=== PATIENT | female | born 1970 | race American Indian/Alaskan Native ===

== ENCOUNTER 2017-03-16 19:28 | Emergency (ER) | payer BC, OTHER ==
--- NOTE | 2017-03-16 20:17 | Emergency Department Report ---
HPI - General Chief Complaint: Syncope Time Seen by Provider: 03/16/17 20:06 - HPI HPI: This is a 46-year-old Afro-[place] female presents to the emergency department from up in the ICU where she was sitting bedside with her aunt. After getting news of her aunts , the patient passed out in her chair and slumped backwards. She did not fall down or hit her head. The patient has a history of diabetes and family became concerned that she was low blood sugar so they put some Coca-Cola into her mouth. Patient was only unconscious for a short amount of time. Patient currently is asymptomatic other than feeling sad about her family members . She has a past medical history of non-insulin dependent diabetes. She denies any history of DE, CVA, PE/DVT. ED Past Medical Hx - Past Medical History Previous Medical History?: Yes Hx Diabetes: Yes - Surgical History Past Surgical History?: Yes Additional Surgical History: Tubal Ligation, Left knee surgery - Social History Smoking Status: Current Every Day Smoker Substance Use Type: None - Medications Home Medications: Home Medications Medication Instructions Recorded Confirmed Last Taken Type metFORMIN [Glucophage] 500 mg PO BID #30 tablet 05/22/14 10/13/15 10/13/15 Rx HYDROcodone/APAP 10-325 [[place] 1 each PO Q4-6H PRN #25 tablet 10/10/15 10/13/15 Unknown Rx 10/325] Sulfamethoxazole/Trimethoprim 1 each PO Q12H #20 tablet 10/10/15 10/13/15 Rx [Bactrim DS TAB] glipiZIDE 5 mg PO BID 10/10/15 10/13/15 10/13/15 History Ibuprofen [Motrin 800 MG tab] 800 mg PO Q8HR PRN #30 tablet 10/13/15 Unknown Rx Cyclobenzaprine [Flexeril] 10 mg PO TID PRN #15 tablet 05/27/16 Unknown Rx Ibuprofen [Motrin] 800 mg PO Q8HR PRN #15 tablet 05/27/16 Unknown Rx ED Review of Systems ROS: Stated complaint: POSS LOW BLOOD SUGAR Other details as noted in HPI Comment: All other systems reviewed and negative Constitutional: denies: chills, fever Eyes: denies: eye pain, eye discharge, vision change ENT: denies: ear pain, throat pain Respiratory: denies: cough, shortness of breath, wheezing Cardiovascular: syncope. denies: chest pain, palpitations Gastrointestinal: denies: abdominal pain, nausea, diarrhea Genitourinary: denies: urgency, dysuria, discharge Musculoskeletal: denies: back pain, joint swelling, arthralgia Skin: denies: rash, lesions Neurological: denies: headache, weakness, paresthesias Physical Exam - Physical Exam Vital Signs: Vital Signs 03/16/17 19:44 Temperature 98.7 F Pulse Rate 102 H Respiratory 18 Rate Blood Pressure 164/111 O2 Sat by Pulse 100 Oximetry Physical Exam: GENERAL: The patient is well-developed well-nourished. HEENT: Normocephalic. Atraumatic. Extraocular motions are intact. Patient has moist mucous membranes. Pupils equal reactive to light bilaterally. No nystagmus. NECK: Supple. Trachea is midline. CHEST/LUNGS: Clear to auscultation. There is no respiratory distress noted. HEART/CARDIOVASCULAR: Regular. There is no tachycardia. There is no gallop rub or murmur. ABDOMEN: Abdomen is soft, nontender. Patient has normal bowel sounds. There is no abdominal distention. SKIN: Skin is warm and dry. NEURO: The patient is awake, alert, and oriented. The patient is cooperative. The patient has no focal neurologic deficits. The patient has normal speech. Cranial nerves II through XII grossly intact. No dysmetria. No pronator drift. MUSCULOSKELETAL: There is no tenderness or deformity. There is no limitation range of motion. There is no evidence of acute injury. ED Course Vital Signs 03/16/17 19:44 Temperature 98.7 F Pulse Rate 102 H Respiratory 18 Rate Blood Pressure 164/111 O2 Sat by Pulse 100 Oximetry ED Medical Decision Making - Lab Data Result diagrams: 03/16/17 20:20 03/16/17 20:20 - EKG Data -: EKG Interpreted by Ms EKG shows normal: sinus rhythm, axis, intervals, QRS complexes, ST-T waves Rate: normal - EKG Data When compared to previous EKG there are: previous EKG unavailable Interpretation: normal EKG - Medical Decision Making Is a 46-year-old female who presents emergency Department after passing out while in a chair after hearing of her aunts expiration in the ICU. The patient has been awake and alert and appropriate since being in the emergency department. No focal, motor or sensory deficits in her cranial nerves are intact. Labs show some hyperglycemia but she does not appear to be in diabetic ketoacidosis or HHNK. She was given 6 units of subcutaneous insulin. Normal thyroid function. Vital signs stable throughout her ED course. Patient ambulatory in the emergency department and appears stable. Appears most consistent with a vasovagal episode secondary to grief. The patient go home and do an Accu-Chek before restarting her diabetes medications. She will follow -up with her primary care doctor and return with the ER with any worsening or symptoms or acute distress. - Differential Diagnosis vasovagal, orthostatic hypotension, hypoglycemia Critical Care Time: No Critical care attestation.: If time is entered above; I have spent that time in minutes in the direct care of this critically ill patient, excluding procedure time. ED Disposition Clinical Impression: Grieving Syncope Qualifiers: Syncope type: unspecified Qualified Code(s): R55 - Syncope and collapse Disposition: DC-01 TO HOME OR SELFCARE Is pt being admited?: No Condition: Stable Additional Instructions: Please follow-up with your primary care doctor as soon as possible. Please return to the emergency department immediately with any further passing out, any intractable headache, chest pain, shortness of breath or any acute distress. Referrals: PRIMARY CARE, [Primary Care Provider] - [facility] Time of Disposition: 21:40
[2017-03-16 20:43] LABS: Basophils % (Auto) 0.5 % (0.0-1.8); Eosinophils % (Auto) 2.6 % (0.0-4.3); Hematocrit 48.9 % (30.3-42.9); Hemoglobin 16.1 gm/dl (10.1-14.3); Mean Corpuscular HGB Conc 33 % (30-34); Mean Corpuscular Hemoglobin 30 pg (28-32); Mean Corpuscular Volume 90 fl (79-97); Red Blood Count 5.41 M/mm3 (3.65-5.03); Red Cell Distribution Width 16.7 % (13.2-15.2); White Blood Count 7.1 K/mm3 (4.5-11.0)
[2017-03-16 20:44] LABS: Platelet Count 221 K/mm3 (140-440)
[2017-03-16 20:53] LABS: Anion Gap 17 mmol/L; BUN/Creatinine Ratio 18.33; Blood Urea Nitrogen 11 mg/dL (7-17); Carbon Dioxide 28 mmol/L (22-30); Chloride 97.5 mmol/L (98-107); Glucose 312 mg/dL (65-100); Potassium 4.5 mmol/L (3.6-5.0); Sodium 138 mmol/L (137-145)
[2017-03-16 21:06] LABS: Bilirubin,Urine NEG (Negative); Blood,Urine LG (Negative); Ketones,Urine 20 mg/dL (Negative); Leukocyte Esterase,Urine NEG (Negative); Mucus,Urine FEW /HPF; Nitrite,Urine NEG (Negative); Urobilinogen,Urine < 2.0 mg/dL (<2.0); WBC,Urine < 1.0 /HPF (0.0-6.0)
[2017-03-16 22:14] VITALS: BP 132/88
== END 2017-03-16 22:17 | disposition home or self-care (01) ==
LOC: ED 19:28
DX: R55 Syncope and collapse (principal); F43.20 Adjustment disorder, unspecified; E11.9 Type 2 diabetes mellitus without complications; F17.200 Nicotine dependence, unspecified, uncomplicated
CPT/HCPCS: 36415; 80048; 81001; 82962; 84443; 85025; 93005; 93010; 96372; J1815

== ENCOUNTER 2018-01-02 12:25 | Emergency (ER) | payer BC ==
--- NOTE | 2018-01-02 13:04 | XRay Report ---
ROUTINE CHEST, TWO VIEWS: HISTORY: Shortness of breath. The trachea, heart, mediastinal contour, lung joseph and bony thorax are unremarkable. IMPRESSION: Unremarkable chest x-ray.
[2018-01-02] MEDS ORDERED: NACL 0.9% 1000 ML IV ONE (13:51)
[2018-01-02 14:05] LABS: Basophils # (Auto) 0.1 K/mm3 (0.0-0.1); Basophils % (Auto) 0.6 % (0.0-1.8); Eosinophils # (Auto) 0.2 K/mm3 (0.0-0.4); Eosinophils % (Auto) 1.6 % (0.0-4.3); Hematocrit 51.7 % (30.3-42.9); Hemoglobin 17.3 gm/dl (10.1-14.3); Lymphocytes # (Auto) 1.8 K/mm3 (1.2-5.4); Mean Corpuscular HGB Conc 34 % (30-34); Mean Corpuscular Hemoglobin 33 pg (28-32); Mean Corpuscular Volume 98 fl (79-97); Monocytes # (Auto) 0.7 K/mm3 (0.0-0.8); Monocytes % (Auto) 6.1 % (0.0-7.3); Platelet Count 238 K/mm3 (140-440); Red Blood Count 5.27 M/mm3 (3.65-5.03); Red Cell Distribution Width 13.2 % (13.2-15.2)
[2018-01-02] MEDS ORDERED: LEVAQUIN 750MG/150ML 750 MG/150 ML BAG IV ONE (14:07)
[2018-01-02 14:17] LABS: INR 0.87 (0.87-1.13)
[2018-01-02 14:26] LABS: BUN/Creatinine Ratio 26; Blood Urea Nitrogen 13 mg/dL (7-17); Calcium 8.8 mg/dL (8.4-10.2); Hemolysis Index 14
[2018-01-02] MEDS ORDERED: TYLENOL #3 PO ONE (15:35)
[2018-01-02] MEDS ORDERED: DUONEB *Not for PRN Use IH ONE (16:28)
[2018-01-02 18:07] VITALS: BP 135/83
--- NOTE | 2018-01-02 18:15 | Cat Scan Report ---
FINAL REPORT EXAM: CT ANGIO CHEST HISTORY: chest pain,sob TECHNIQUE: Enhanced CT of the chest at 2.5 mm axial intervals following a pulmonary embolism protocol. Coronal and sagittal imaging were also obtained. Coronal oblique MIP projections were obtained. Contrast: 100 ml of Omnipaque 350 given IV. PRIORS: None. FINDINGS: There is no evidence for pulmonary embolism in the main pulmonary artery, right and left pulmonary arteries or their major distributions. However, CT does not exclude distal pulmonary emboli. Otherwise, the lung parenchyma are expanded and clear with no evidence for parenchymal nodules, infiltrates, congestion, or pleural effusion. There is no evidence for mediastinal, hilar, or axillary adenopathy. Cardiovascular structures are within normal limits. No evidence for ventricular chamber enlargement is seen. Images through the lung bases include the upper abdomen which show no abnormalities of the visualized abdominal viscera. Bony structures demonstrate no focal abnormalities. IMPRESSION: No evidence for pulmonary embolism. Negative CT of the chest.
--- NOTE | 2018-01-02 18:43 | Emergency Department Report ---
HPI - General Chief Complaint: Dyspnea/Respdistress Time Seen by Provider: 01/02/18 13:46 ED Past Medical Hx - Past Medical History Previous Medical History?: Yes Hx Diabetes: Yes - Surgical History Past Surgical History?: No Additional Surgical History: Tubal Ligation, Left knee surgery - Social History Smoking Status: Current Every Day Smoker - Medications Home Medications: Home Medications Medication Instructions Recorded Confirmed Last Taken Type metFORMIN [Glucophage] 500 mg PO BID #30 tablet 05/22/14 10/13/15 10/13/15 Rx HYDROcodone/APAP 10-325 [[place] 1 each PO Q4-6H PRN #25 tablet 10/10/15 10/13/15 Unknown Rx 10/325] Sulfamethoxazole/Trimethoprim 1 each PO Q12H #20 tablet 10/10/15 10/13/15 Rx [Bactrim DS TAB] glipiZIDE 5 mg PO BID 10/10/15 10/13/15 10/13/15 History Ibuprofen [Motrin 800 MG tab] 800 mg PO Q8HR PRN #30 tablet 10/13/15 Unknown Rx Cyclobenzaprine [Flexeril] 10 mg PO TID PRN #15 tablet 05/27/16 Unknown Rx Ibuprofen [Motrin] 800 mg PO Q8HR PRN #15 tablet 05/27/16 Unknown Rx Amoxicillin/Potassium Clav 1 each PO BID #20 tablet 01/02/18 Unknown Rx [Augmentin 875-125 Tablet] methylPREDNISolone [Medrol Dose 4 mg PO QAM #1 pack 01/02/18 Unknown Rx Mitch] ED Review of Systems ROS: Stated complaint: CP/WHEEZING Other details as noted in HPI Physical Exam - Physical Exam Vital Signs: Vital Signs 01/02/18 01/02/18 01/02/18 12:27 13:42 13:45 Temperature 99 F Pulse Rate 123 H 114 H 121 H Respiratory 14 15 Rate Blood Pressure 140/78 O2 Sat by Pulse 95 97 96 Oximetry 01/02/18 01/02/18 01/02/18 14:00 14:20 14:30 Temperature Pulse Rate 112 H 107 H Respiratory 15 19 24 Rate Blood Pressure 168/96 137/82 137/82 O2 Sat by Pulse 96 95 95 Oximetry 01/02/18 01/02/18 01/02/18 15:00 15:30 16:00 Temperature Pulse Rate 113 H 100 H Respiratory 19 18 15 Rate Blood Pressure 143/82 143/82 155/79 O2 Sat by Pulse 95 98 96 Oximetry 01/02/18 01/02/18 01/02/18 16:30 17:42 18:00 Temperature Pulse Rate 97 H 109 H 103 H Respiratory 26 H 14 20 Rate Blood Pressure 155/79 155/79 135/83 O2 Sat by Pulse 95 93 Oximetry 01/02/18 18:07 Temperature 98.4 F Pulse Rate Respiratory Rate Blood Pressure O2 Sat by Pulse Oximetry Physical Exam: - Physical Exam Physical Exam: - General Limitations: No Limitations General appearance: alert, in no apparent distress, obese - Head Head exam: Present: atraumatic, normocephalic - Eye Eye exam: Present: normal appearance - ENT ENT exam: Present: mucous membranes moist - Neck Neck exam: Present: normal inspection - Respiratory Respiratory exam: Present: normal lung sounds bilaterally. Absent: respiratory distress - Cardiovascular Cardiovascular Exam: Present: normal rhythm, tachycardia. Absent: systolic murmur, diastolic murmur, rubs, gallop - GI/Abdominal GI/Abdominal exam: Present: soft, normal bowel sounds - Extremities Exam Extremities exam: Present: normal inspection - Back Exam Back exam: Present: normal inspection - Neurological Exam Neurological exam: Present: alert, oriented X3 - Psychiatric Psychiatric exam: normal affect and mood - Skin Skin exam: Present: warm, dry, intact, normal color. Absent: rash ED Course Vital Signs 01/02/18 01/02/18 01/02/18 12:27 13:42 13:45 Temperature 99 F Pulse Rate 123 H 114 H 121 H Respiratory 14 15 Rate Blood Pressure 140/78 O2 Sat by Pulse 95 97 96 Oximetry 01/02/18 01/02/18 01/02/18 14:00 14:20 14:30 Temperature Pulse Rate 112 H 107 H Respiratory 15 19 24 Rate Blood Pressure 168/96 137/82 137/82 O2 Sat by Pulse 96 95 95 Oximetry 01/02/18 01/02/18 01/02/18 15:00 15:30 16:00 Temperature Pulse Rate 113 H 100 H Respiratory 19 18 15 Rate Blood Pressure 143/82 143/82 155/79 O2 Sat by Pulse 95 98 96 Oximetry 01/02/18 01/02/18 01/02/18 16:30 17:42 18:00 Temperature Pulse Rate 97 H 109 H 103 H Respiratory 26 H 14 20 Rate Blood Pressure 155/79 155/79 135/83 O2 Sat by Pulse 95 93 Oximetry 01/02/18 18:07 Temperature 98.4 F Pulse Rate Respiratory Rate Blood Pressure O2 Sat by Pulse Oximetry ED Medical Decision Making - Lab Data Result diagrams: 01/02/18 13:47 01/02/18 13:47 Critical care attestation.: If time is entered above; I have spent that time in minutes in the direct care of this critically ill patient, excluding procedure time. ED Disposition Clinical Impression: Acute sinusitis Qualifiers: Sinusitis location: maxillary Recurrence: non-recurrent Qualified Code(s): J01.00 - Acute maxillary sinusitis, unspecified Disposition: - TO HOME OR SELFCARE Is pt being admited?: No Does the pt Need Aspirin: No Condition: Stable Instructions: Acute Bacterial Rhinosinusitis (ED) Prescriptions: Amoxicillin/Potassium Clav [Augmentin 875-125 Tablet] 1 each PO BID #20 tablet methylPREDNISolone [Medrol Dose Mitch] 4 mg PO QAM #1 pack Referrals: PRIMARY CARE, [Primary Care Provider] - 3-5 Days
== END 2018-01-02 19:00 | disposition home or self-care (01) ==
LOC: ED 12:25
DX: J01.90 Acute sinusitis, unspecified (principal); F17.200 Nicotine dependence, unspecified, uncomplicated; E11.9 Type 2 diabetes mellitus without complications
CPT/HCPCS: 36415; 71046; 71275; 80048; 82140; 85025; 85610; 87040; 96365; 96366; 99285; J1956; J7030; Q9967

== ENCOUNTER 2019-07-28 08:41 | Emergency (ER) | payer BC ==
[2019-07-28 08:48] VITALS: BP 142/87
--- NOTE | 2019-07-28 09:37 | Emergency Department Report ---
ED General Adult HPI - General Chief complaint: Hyperglycemia Stated complaint: HBS/RT EYE SWELLING Time Seen by Provider: 07/28/19 09:04 Source: patient Mode of arrival: Ambulatory Limitations: No Limitations - History of Present Illness Initial comments: This is a 48-year-old female with a history of diabetes hyperlipidemia who presents to ED complaining of right upper eyelid redness and pain for the past 3 days. Patient denies any trauma or injuries to the eye she denies any vision loss or blurry vision. Patient is also stated in the she had a recent change of insurance and can no longer see her primary care of 68 as she is in transition trying to find a primary care doctor. She is much has been out of her medication for the past 3 weeks. Patient takes metformin and glipizide for diabetes. She denies any symptoms at the moment. Patient states she has been hydrating treated complaining of fluids throughout the day. - Related Data Previous Rx's Medication Instructions Recorded Last Taken Type HYDROcodone/APAP 10-325 [[place] 1 each PO Q4-6H PRN #25 tablet 10/10/15 Unknown Rx 10/325] Sulfamethoxazole/Trimethoprim 1 each PO Q12H #20 tablet 10/10/15 10/13/15 Rx [Bactrim DS TAB] Ibuprofen [Motrin 800 MG tab] 800 mg PO Q8HR PRN #30 tablet 10/13/15 Unknown Rx Cyclobenzaprine [Flexeril] 10 mg PO TID PRN #15 tablet 05/27/16 Unknown Rx Amoxicillin/Potassium Clav 1 each PO BID #20 tablet 01/02/18 Unknown Rx [Augmentin 875-125 Tablet] methylPREDNISolone [Medrol Dose 4 mg PO QAM #1 pack 01/02/18 Unknown Rx Mitch] Erythromycin [Erythromycin Ophth 1 applic OP TID #1 tube 07/28/19 Unknown Rx Oint] Ibuprofen [Motrin 800 MG tab] 800 mg PO Q8HR PRN #15 tablet 07/28/19 Unknown Rx Ketorolac Tromethamine [Ketorolac 1 - 2 drops OP BID #5 ml 07/28/19 Unknown Rx Tromethamine 0.4% opth soln] glipiZIDE 5 mg PO BID #40 07/28/19 Unknown Rx metFORMIN [Glucophage] 500 mg PO BID #30 tablet 07/28/19 Unknown Rx Allergies Allergy/AdvReac Type Severity Reaction Status Date / Time prochlorperazine edisylate Allergy Itching Verified 07/28/19 08:43 [From Compazine] prochlorperazine maleate Allergy Itching Verified 07/28/19 08:43 [From Compazine] ED Review of Systems ROS: Stated complaint: HBS/RT EYE SWELLING Other details as noted in HPI Comment: All other systems reviewed and negative ED Past Medical Hx - Past Medical History Hx Diabetes: Yes - Surgical History Additional Surgical History: Tubal Ligation, Left knee surgery - Social History Smoking Status: Current Every Day Smoker Substance Use Type: None - Medications Home Medications: Home Medications Medication Instructions Recorded Confirmed Last Taken Type HYDROcodone/APAP 10-325 [[place] 1 each PO Q4-6H PRN #25 tablet 10/10/15 10/13/15 Unknown Rx 10/325] Sulfamethoxazole/Trimethoprim 1 each PO Q12H #20 tablet 10/10/15 10/13/15 10/13/15 Rx [Bactrim DS TAB] Ibuprofen [Motrin 800 MG tab] 800 mg PO Q8HR PRN #30 tablet 10/13/15 Unknown Rx Cyclobenzaprine [Flexeril] 10 mg PO TID PRN #15 tablet 05/27/16 Unknown Rx Amoxicillin/Potassium Clav 1 each PO BID #20 tablet 01/02/18 Unknown Rx [Augmentin 875-125 Tablet] methylPREDNISolone [Medrol Dose 4 mg PO QAM #1 pack 01/02/18 Unknown Rx Mitch] Erythromycin [Erythromycin Ophth 1 applic OP TID #1 tube 07/28/19 Unknown Rx Oint] Ibuprofen [Motrin 800 MG tab] 800 mg PO Q8HR PRN #15 tablet 07/28/19 Unknown Rx Ketorolac Tromethamine [Ketorolac 1 - 2 drops OP BID #5 ml 07/28/19 Unknown Rx Tromethamine 0.4% opth soln] glipiZIDE 5 mg PO BID #40 07/28/19 Unknown Rx metFORMIN [Glucophage] 500 mg PO BID #30 tablet 07/28/19 Unknown Rx ED Physical Exam - General Limitations: No Limitations General appearance: alert, in no apparent distress - Head Head exam: Present: atraumatic, normocephalic - Eye Eye exam: Present: normal appearance, PERRL, EOMI, other (right upper eyelid pain and redness brent swelling) Pupils: Present: normal accommodation (right upper eyelid redness, swelling and pain) - ENT ENT exam: Present: mucous membranes moist - Neck Neck exam: Present: normal inspection - Respiratory Respiratory exam: Present: normal lung sounds bilaterally. Absent: respiratory distress - Cardiovascular Cardiovascular Exam: Present: regular rate, normal rhythm. Absent: systolic murmur, diastolic murmur, rubs, gallop - GI/Abdominal GI/Abdominal exam: Present: soft, normal bowel sounds - Extremities Exam Extremities exam: Present: normal inspection - Back Exam Back exam: Present: normal inspection - Neurological Exam Neurological exam: Present: alert, oriented X3 - Psychiatric Psychiatric exam: Present: normal affect, normal mood - Skin Skin exam: Present: warm, dry, intact, normal color. Absent: rash ED Course Vital Signs 07/28/19 08:45 Temperature 98.9 F Pulse Rate 106 H Respiratory 16 Rate Blood Pressure 142/87 O2 Sat by Pulse 98 Oximetry ED Medical Decision Making - Medical Decision Making 48-year-old female presents for medication refill as well as right upper Lid blepharitis. I discussed with her that I will refill her medications and she states she will pick it up so she was the ER. Discussed primary care referrals given to patient. Patient states that she will follow-up as soon as she is able to make an appointment. Patient is not exhibiting any symptoms such as abdominal pain nausea vomiting. So we'll treat her hyperglycemia due to no medication. Patient has no vision disturbances Vital signs are normal patient is in no acute distress. Critical care attestation.: If time is entered above; I have spent that time in minutes in the direct care of this critically ill patient, excluding procedure time. 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 Take all your medications as you've been prescribed. If you have any worsening symptoms or develop new symptoms please return to ED immediately. Prescriptions: Erythromycin [Erythromycin Ophth Oint] 1 applic OP TID #1 tube glipiZIDE 5 mg PO BID #40 metFORMIN [Glucophage] 500 mg PO BID #30 tablet Ketorolac Tromethamine [Ketorolac Tromethamine 0.4% opth soln] 1 - 2 drops OP BID #5 ml Ibuprofen [Motrin 800 MG tab] 800 mg PO Q8HR PRN #15 tablet PRN Reason: Pain Referrals: PRIMARY CARE, [Primary Care Provider] - 3-5 Days [facility] [Provider Group] - 3-5 Days Forms: Work/School Release Form(ED) Time of Disposition: 09:46 ( )
== END 2019-07-28 10:13 | disposition home or self-care (01) ==
LOC: ED 08:41
DX: H02.31 Blepharochalasis right upper eyelid (principal); H01.003 Unspecified blepharitis right eye, unspecified eyelid; E11.65 Type 2 diabetes mellitus with hyperglycemia; F17.200 Nicotine dependence, unspecified, uncomplicated; Z98.51 Tubal ligation status; Z98.890 Other specified postprocedural states; Z88.8 Allergy status to other drugs, medicaments and biological substances; Z79.84 Long term (current) use of oral hypoglycemic drugs
CPT/HCPCS: 82962

== ENCOUNTER 2021-09-12 07:59 | Emergency (ER) | payer BC ==
[2021-09-12 08:04] VITALS: BP 116/81
[2021-09-12] MEDS ORDERED: KETOROLAC 60 MG/2 ML INJ IM ONE (09:32)
[2021-09-12] MEDS ORDERED: oxyCODONE /ACETAMINOPHEN 5-325MG TAB PO ONE (09:32)
--- NOTE | 2021-09-12 09:40 | Emergency Department Report ---
ED General Adult HPI - General Chief complaint: Fall Stated complaint: FALL, LEFT KNEE PAIN Time Seen by Provider: 09/12/21 08:41 Source: patient Mode of arrival: Ambulatory Limitations: No Limitations - History of Present Illness Initial comments: 50-year-old -[place] female patient presents with complaints of bilateral hand pain and left knee pain after a fall down the stairs today. She rates her current pain as a 10/10 in severity and states there is swelling to the left knee. Patient states she is able to ambulate, however bending the knee makes the pain worse. She states there is a cut to the right fourth digit at the tip. No head trauma or loss of consciousness per patient. She also denies any chest pain or abdominal pain. Last tetanus vaccination was 2 years ago per patient. She reports history of hypertension and diabetes. - Related Data Previous Rx's Medication Instructions Recorded Last Taken Type HYDROcodone/APAP 10-325 [[place] 1 each PO Q4-6H PRN #25 tablet 10/10/15 Unknown Rx 10/325] Sulfamethoxazole/Trimethoprim 1 each PO Q12H #20 tablet 10/10/15 10/13/15 Rx [Bactrim DS TAB] Ibuprofen [Motrin 800 MG tab] 800 mg PO Q8HR PRN #30 tablet 10/13/15 Unknown Rx Cyclobenzaprine [Flexeril] 10 mg PO TID PRN #15 tablet 05/27/16 Unknown Rx Amoxicillin/Potassium Clav 1 each PO BID #20 tablet 01/02/18 Unknown Rx [Augmentin 875-125 Tablet] methylPREDNISolone [Medrol Dose 4 mg PO QAM #1 pack 01/02/18 Unknown Rx Mitch] Erythromycin [Erythromycin Ophth 1 applic OP TID #1 tube 07/28/19 Unknown Rx Oint] Ibuprofen [Motrin 800 MG tab] 800 mg PO Q8HR PRN #15 tablet 07/28/19 Unknown Rx Ketorolac Tromethamine [Ketorolac 1 - 2 drops OP BID #5 ml 07/28/19 Unknown Rx Tromethamine 0.4% opth soln] glipiZIDE 5 mg PO BID #40 07/28/19 Unknown Rx metFORMIN [Glucophage] 500 mg PO BID #30 tablet 07/28/19 Unknown Rx Acetaminophen/Codeine [Tylenol 1 tab PO Q8H PRN #10 tab 09/12/21 Unknown Rx /Codeine # 3 tab] Mupirocin [Bactroban 2% OINT] 1 applic TP TID 10 Days #1 tube 09/12/21 Unknown Rx Naproxen 500 mg PO BID PRN #20 tablet 09/12/21 Unknown Rx Allergies Allergy/AdvReac Type Severity Reaction Status Date / Time prochlorperazine edisylate Allergy Itching Verified 07/28/19 08:43 [From Compazine] prochlorperazine maleate Allergy Itching Verified 07/28/19 08:43 [From Compazine] ED Review of Systems ROS: Stated complaint: FALL, LEFT KNEE PAIN Other details as noted in HPI Constitutional: denies: malaise Gastrointestinal: denies: abdominal pain Musculoskeletal: joint swelling, arthralgia Skin: denies: change in color Neurological: denies: numbness ED Past Medical Hx - Past Medical History Previous Medical History?: Yes Hx Diabetes: Yes - Surgical History Past Surgical History?: Yes Additional Surgical History: Tubal Ligation, Left knee surgery - Social History Smoking Status: Current Every Day Smoker Substance Use Type: None - Medications Home Medications: Home Medications Medication Instructions Recorded Confirmed Last Taken Type HYDROcodone/APAP 10-325 [[place] 1 each PO Q4-6H PRN #25 tablet 10/10/15 10/13/15 Unknown Rx 10/325] Sulfamethoxazole/Trimethoprim 1 each PO Q12H #20 tablet 10/10/15 10/13/15 Rx [Bactrim DS TAB] Ibuprofen [Motrin 800 MG tab] 800 mg PO Q8HR PRN #30 tablet 10/13/15 Unknown Rx Cyclobenzaprine [Flexeril] 10 mg PO TID PRN #15 tablet 05/27/16 Unknown Rx Amoxicillin/Potassium Clav 1 each PO BID #20 tablet 01/02/18 Unknown Rx [Augmentin 875-125 Tablet] methylPREDNISolone [Medrol Dose 4 mg PO QAM #1 pack 01/02/18 Unknown Rx Mitch] Erythromycin [Erythromycin Ophth 1 applic OP TID #1 tube 07/28/19 Unknown Rx Oint] Ibuprofen [Motrin 800 MG tab] 800 mg PO Q8HR PRN #15 tablet 07/28/19 Unknown Rx Ketorolac Tromethamine [Ketorolac 1 - 2 drops OP BID #5 ml 07/28/19 Unknown Rx Tromethamine 0.4% opth soln] glipiZIDE 5 mg PO BID #40 07/28/19 Unknown Rx metFORMIN [Glucophage] 500 mg PO BID #30 tablet 07/28/19 Unknown Rx Acetaminophen/Codeine [Tylenol 1 tab PO Q8H PRN #10 tab 09/12/21 Unknown Rx /Codeine # 3 tab] Mupirocin [Bactroban 2% OINT] 1 applic TP TID 10 Days #1 tube 09/12/21 Unknown Rx Naproxen 500 mg PO BID PRN #20 tablet 09/12/21 Unknown Rx ED Physical Exam - General Limitations: No Limitations General appearance: alert, in no apparent distress, obese - Head Head exam: Present: atraumatic, normocephalic - Eye Eye exam: Present: normal appearance - Respiratory Respiratory exam: Absent: respiratory distress - Cardiovascular Cardiovascular Exam: Present: regular rate - Extremities Exam Extremities exam: Present: other (Tenderness to palpation noted to the right third and fourth digits and left second and third digits without obvious deformities or bruising or swelling noted; there is a partial nail avulsion of the right fourth digit without active bleeding or obvious foreign body) - Expanded Lower Extremity Exam Left Knee exam: Present: full ROM, tenderness (Patella and joint line tenderness to palpation noted), swelling (Mild). Absent: laceration, ecchymosis, dislocation Lower Leg exam: Present: normal inspection Ankle exam: Present: normal inspection - Neurological Exam Neurological exam: Present: alert, oriented X3. Absent: normal gait (Antalgic) - Psychiatric Psychiatric exam: Present: normal affect, normal mood - Skin Skin exam: Present: warm, dry, normal color. Absent: rash ED Course Vital Signs 09/12/21 09/12/21 08:03 11:05 Temperature 99.1 F Pulse Rate 113 H 92 H Respiratory 18 Rate Blood Pressure 116/81 O2 Sat by Pulse 96 Oximetry ED Medical Decision Making - Radiology Data Radiology results: report reviewed Left knee-4 views INDICATION: pain and swelling after fall onto knee. COMPARISON: None available. IMPRESSION: No acute osseous abnormality. Normal alignment. Moderate tricompartmental DJD. Soft tissues are unremarkable. Bilateral hands-4 views on the right and 5 views on the left INDICATION: 3rd and 4th digit pain after fall. COMPARISON: None available. IMPRESSION: No acute osseous abnormality. Normal alignment. Mild scattered degenerative changes in both hands. Soft tissues are unremarkable. - Medical Decision Making 50-year-old -[place] female patient presents with complaints of bilateral hand pain and left knee pain after a fall down the stairs today. She rates her current pain as a 10/10 in severity and states there is swelling to the left knee. Patient states she is able to ambulate, however bending the knee makes the pain worse. She states there is a cut to the right fourth digit at the tip. No head trauma or loss of consciousness per patient. She also denies any chest pain or abdominal pain. Last tetanus vaccination was 2 years ago per patient. She reports history of hypertension and diabetes. No acute abnormalities noted on x-ray. Will treat for knee sprain and finger sprain with rice method and NSAIDs. Recommend follow-up with PCP and orthopedics as needed. Discussed in detail signs and symptoms that should prompt immediate return to the ED with patient who verbalized understanding. Critical care attestation.: If time is entered above; I have spent that time in minutes in the direct care of this critically ill patient, excluding procedure time. ED Disposition Clinical Impression: Left knee pain, Bilateral hand pain Disposition: 01 HOME / SELF CARE / HOMELESS Is pt being admited?: No Condition: Stable Instructions: Knee Sprain, Adult, [id number], Finger Sprain, Adult, [id number] Prescriptions: Mupirocin [Bactroban 2% OINT] 1 applic TP TID 10 Days #1 tube Naproxen 500 mg PO BID PRN #20 tablet PRN Reason: pain Acetaminophen/Codeine [Tylenol /Codeine # 3 tab] 1 tab PO Q8H PRN #10 tab PRN Reason: Pain , Severe (7-10) Referrals: PRIMARY CARE, [Primary Care Provider] - 3-5 Days FELICITA MUKHERJEE MD [Staff Physician] - as needed Forms: Work/School Release Form(ED)
--- NOTE | 2021-09-12 11:09 | XRay Report ---
Bilateral hands-4 views on the right and 5 views on the left INDICATION: 3rd and 4th digit pain after fall. COMPARISON: None available. IMPRESSION: No acute osseous abnormality. Normal alignment. Mild scattered degenerative changes in both hands. Soft tissues are unremarkable. Signer Name: Yefri Nunn MD Signed: 09/12/2021 11:04 AM Workstation Name: [id number]
--- NOTE | 2021-09-12 11:09 | XRay Report ---
Left knee-4 views INDICATION: pain and swelling after fall onto knee. COMPARISON: None available. IMPRESSION: No acute osseous abnormality. Normal alignment. Moderate tricompartmental DJD. Soft ti ssues are unremarkable. Signer Name: Yefri Nunn MD Signed: 09/12/2021 11:05 AM Workstation Name: [id number]
[2021-09-12] MEDS ORDERED: NEOMY 3.5 MG/BACIT 400 UNITS/POLY B 5000 UNITS/GM OINT PACKET TP STA (12:13)
== END 2021-09-12 12:39 | disposition home or self-care (01) ==
LOC: ED 07:59
DX: M25.562 Pain in left knee (principal); M79.642 Pain in left hand; M79.641 Pain in right hand; F17.200 Nicotine dependence, unspecified, uncomplicated; E11.8 Type 2 diabetes mellitus with unspecified complications; Z88.6 Allergy status to analgesic agent
CPT/HCPCS: 73130; 73564; 96372; 99283; J1885

== ENCOUNTER 2021-09-16 12:43 | Emergency (ER) | payer BC ==
[2021-09-16 13:32] VITALS: BP 160/100
--- NOTE | 2021-09-16 14:20 | Emergency Department Report ---
- General Chief Complaint: Medical Clearance Stated Complaint: FINGER PAIN FROM FALL Time Seen by Provider: 09/16/21 14:10 Source: patient Mode of arrival: Ambulatory Limitations: No Limitations - History of Present Illness Initial Comments: 50-year-old -[place] female presents to the emergency room for wound check to her right fourth digit. Patient states that she had injured it on 09/12/2021. States that the Bactroban that she was placing on it got destroyed by her grandchild. States that it embossing machine tender to touch but has not been draining no redness has improved. She denies any fever or chills. Onset/Timin -: days(s) Extremity Location: Right: Hand (fourth digit) Patient Tetanus UTD: Yes Context: fall Associated Symptoms: pain - Related Data Previous Rx's Medication Instructions Recorded Last Taken Type HYDROcodone/APAP 10-325 [[place] 1 each PO Q4-6H PRN #25 tablet 10/10/15 Unknown Rx 10/325] Sulfamethoxazole/Trimethoprim 1 each PO Q12H #20 tablet 10/10/15 10/13/15 Rx [Bactrim DS TAB] Ibuprofen [Motrin 800 MG tab] 800 mg PO Q8HR PRN #30 tablet 10/13/15 Unknown Rx Cyclobenzaprine [Flexeril] 10 mg PO TID PRN #15 tablet 05/27/16 Unknown Rx Amoxicillin/Potassium Clav 1 each PO BID #20 tablet 01/02/18 Unknown Rx [Augmentin 875-125 Tablet] methylPREDNISolone [Medrol Dose 4 mg PO QAM #1 pack 01/02/18 Unknown Rx Mitch] Erythromycin [Erythromycin Ophth 1 applic OP TID #1 tube 07/28/19 Unknown Rx Oint] Ibuprofen [Motrin 800 MG tab] 800 mg PO Q8HR PRN #15 tablet 07/28/19 Unknown Rx Ketorolac Tromethamine [Ketorolac 1 - 2 drops OP BID #5 ml 07/28/19 Unknown Rx Tromethamine 0.4% opth soln] glipiZIDE 5 mg PO BID #40 07/28/19 Unknown Rx metFORMIN [Glucophage] 500 mg PO BID #30 tablet 07/28/19 Unknown Rx Acetaminophen/Codeine [Tylenol 1 tab PO Q8H PRN #10 tab 09/12/21 Unknown Rx /Codeine # 3 tab] Mupirocin [Bactroban 2% OINT] 1 applic TP TID 10 Days #1 tube 09/12/21 Unknown Rx Naproxen 500 mg PO BID PRN #20 tablet 09/12/21 Unknown Rx Allergies Allergy/AdvReac Type Severity Reaction Status Date / Time prochlorperazine edisylate Allergy Itching Verified 07/28/19 08:43 [From Compazine] prochlorperazine maleate Allergy Itching Verified 07/28/19 08:43 [From Compazine] promethazine [From Phenergan] AdvReac Vomiting Verified 09/16/21 13:32 ED Review of Systems ROS: Stated complaint: FINGER PAIN FROM FALL Other details as noted in HPI Comment: All other systems reviewed and negative ED Past Medical Hx - Past Medical History Hx Diabetes: Yes - Surgical History Additional Surgical History: Tubal Ligation, Left knee surgery - Social History Smoking Status: Current Every Day Smoker Substance Use Type: None - Medications Home Medications: Home Medications Medication Instructions Recorded Confirmed Last Taken Type HYDROcodone/APAP 10-325 [[place] 1 each PO Q4-6H PRN #25 tablet 10/10/15 10/13/15 Unknown Rx 10/325] Sulfamethoxazole/Trimethoprim 1 each PO Q12H #20 tablet 10/10/15 10/13/15 10/13/15 Rx [Bactrim DS TAB] Ibuprofen [Motrin 800 MG tab] 800 mg PO Q8HR PRN #30 tablet 10/13/15 Unknown Rx Cyclobenzaprine [Flexeril] 10 mg PO TID PRN #15 tablet 05/27/16 Unknown Rx Amoxicillin/Potassium Clav 1 each PO BID #20 tablet 01/02/18 Unknown Rx [Augmentin 875-125 Tablet] methylPREDNISolone [Medrol Dose 4 mg PO QAM #1 pack 01/02/18 Unknown Rx Mitch] Erythromycin [Erythromycin Ophth 1 applic OP TID #1 tube 07/28/19 Unknown Rx Oint] Ibuprofen [Motrin 800 MG tab] 800 mg PO Q8HR PRN #15 tablet 07/28/19 Unknown Rx Ketorolac Tromethamine [Ketorolac 1 - 2 drops OP BID #5 ml 07/28/19 Unknown Rx Tromethamine 0.4% opth soln] glipiZIDE 5 mg PO BID #40 07/28/19 Unknown Rx metFORMIN [Glucophage] 500 mg PO BID #30 tablet 07/28/19 Unknown Rx Acetaminophen/Codeine [Tylenol 1 tab PO Q8H PRN #10 tab 09/12/21 Unknown Rx /Codeine # 3 tab] Mupirocin [Bactroban 2% OINT] 1 applic TP TID 10 Days #1 tube 09/12/21 Unknown Rx Naproxen 500 mg PO BID PRN #20 tablet 09/12/21 Unknown Rx ED Physical Exam - General Limitations: No Limitations General appearance: alert, in no apparent distress - Head Head exam: Present: atraumatic, normocephalic - Eye Eye exam: Present: normal appearance - ENT ENT exam: Present: mucous membranes moist - Neck Neck exam: Present: normal inspection - Respiratory Respiratory exam: Present: normal lung sounds bilaterally. Absent: respiratory distress - Cardiovascular Cardiovascular Exam: Present: regular rate, normal rhythm. Absent: systolic murmur, diastolic murmur, rubs, gallop - GI/Abdominal GI/Abdominal exam: Present: soft, normal bowel sounds - Extremities Exam Extremities exam: Present: normal inspection - Back Exam Back exam: Present: normal inspection - Neurological Exam Neurological exam: Present: alert, oriented X3 - Psychiatric Psychiatric exam: Present: normal affect, normal mood - Skin Skin exam: Present: warm, dry, intact, normal color, other (Right hand fourth digit tenderness healing laceration.). Absent: rash ED Course Vital Signs 09/16/21 13:30 Temperature 98.9 F Pulse Rate 100 H Respiratory 14 Rate Blood Pressure 160/100 [Left] O2 Sat by Pulse 100 Oximetry ED Medical Decision Making - Medical Decision Making 50-year-old -[place] female presents to the emergency room for wound check to her right fourth digit. Patient states that she had injured it on 09/12/2021. States that the Bactroban that she was placing on it got destroyed by her grandchild. States that it embossing machine tender to touch but has not been draining no redness has improved. She denies any fever or chills. Recommend triple antibiotic. Pain medicine as needed. Critical care attestation.: If time is entered above; I have spent that time in minutes in the direct care of this critically ill patient, excluding procedure time. ED Disposition Clinical Impression: Visit for wound check Disposition: HOME / SELF CARE / HOMELESS Is pt being admited?: No Does the pt Need Aspirin: No Condition: Stable Additional Instructions: Keep wound clean and dry apply triple antibiotic cream as needed. Apply Band-Aid for comfort. Follow-up with your primary care provider for any further concerns. Referrals: Your, primary care provider [Other] - 3-5 Days Forms: Work/School Release Form(ED)
== END 2021-09-16 14:34 | disposition home or self-care (01) ==
LOC: ED 12:43
DX: T14.90XD Injury, unspecified, subsequent encounter (principal); X58.XXXD Exposure to other specified factors, subsequent encounter; Z88.8 Allergy status to other drugs, medicaments and biological substances; E11.8 Type 2 diabetes mellitus with unspecified complications; F17.200 Nicotine dependence, unspecified, uncomplicated
CPT/HCPCS: 99282

== ENCOUNTER 2022-03-15 00:16 | Emergency (ER) | payer BC | END 2022-03-15 01:24 | disposition left against medical advice (07) | LOC: ED 00:16 | DX: M79.662 Pain in left lower leg (principal); M79.661 Pain in right lower leg; M79.89 Other specified soft tissue disorders; Z53.21 Procedure and treatment not carried out due to patient leaving prior to being seen by health care provider ==